=== PATIENT | female | born 1985 | race Caucasian/White ===

== ENCOUNTER 2017-06-23 21:29 | Inpatient (IN) | payer MEDICAID ==
[2017-06-23] MEDS ORDERED: LORazepam 2 MG/ML MDV IVPUSH ONE (22:16)
[2017-06-23] MEDS ORDERED: Ondansetron 4 MG/2 ML SDV IVPUSH ONE (22:34)
[2017-06-23] MEDS: Lactated Ringers 1,000 ML IV SCH (22:35)
[2017-06-24] MEDS ORDERED: Potassium Chloride 20 MEQ Tab.ER PO ONE (02:00)
[2017-06-24] MEDS ORDERED: Acetaminophen 325 MG Tab PO ONE (03:49)
--- NOTE | 2017-06-24 04:23 | EDM.PDOC ---
ED HPI GENERAL MEDICAL PROBLEM - General Chief Complaint: Neuro Symptoms/Deficits Stated Complaint: SEIZURE Time Seen by Provider: 06/23/17 22:40 - History of Present Illness INITIAL COMMENTS - FREE TEXT/NARRATIVE: 31-year-old female presents emergency room after having a seizure at home. Patient apparently had some nausea and vomiting at home this was followed by her having an episode where she hit the floor and had generalized involuntary movement lasting about a minute to minute according to the patient's father. The patient has never had any seizure-like activity in the past however she has a history of severe alcoholism and has had problems with alcohol withdrawal the past. The patient is a habitual drinker and for the last couple months is been drinking the equivalent to 30-35 shots a day. She has not had a drink in 3 days now as she wants to stop drinking. 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) - Infectious Disease History Infectious Disease History: Reports: Chicken Pox - Past Surgical History HEENT Surgical History: Reports: Oral Surgery GI Surgical History: Reports: Colonoscopy Social & Family History - Family History Cardiac: Reports: [place] Psychiatric: Reports: Other (See Below) Other Psychiatric Family History: father is an alchoholic and is controlling Oncologic: Reports: Colon - Tobacco Use Smoking Status *Q: Current Some Day Smoker Years of Tobacco use: 11 Packs/Tins Daily: 0.1 Used Tobacco, but Quit: Yes Month Tobacco Last Used: June Second Hand Smoke Exposure: Yes - Caffeine Use Caffeine Use: Reports: Soda - Alcohol Use Days Per Week of Alcohol Use: 7 Number of Drinks Per Day: 7 Total Drinks Per Week: 49 - Recreational Drug Use Recreational Drug Use: No Drug Use in Last 12 Months: Yes Recreational Drug Type: Reports: Marijuana/Hashish Recreational Drug Use Frequency: Not Used In Over 2 Months ED ROS GENERAL - Review of Systems Review Of Systems: See Below Constitutional: Reports: No Symptoms HEENT: Reports: No Symptoms Respiratory: Reports: No Symptoms Cardiovascular: Reports: No Symptoms GI/Abdominal: Reports: Nausea, Vomiting. Denies: Abdominal Pain : Reports: Dysuria Musculoskeletal: Reports: No Symptoms Skin: Reports: No Symptoms Neurological: Reports: Seizure Psychiatric: Reports: Anxiety, Other. Denies: Hallucinations, Homicidal Ideation, Mood Lability, Suicidal Ideation ED EXAM, GENERAL - Physical Exam Exam: See Below Exam Limited By: Other (Initially the patient was somewhat confused when she arrived here however this did improve fairly quickly) General Appearance: No Apparent Distress, Lethargic, Other (Upon arrival the patient was a little confused she was not sure what time of day it was but over time this did clear up her initial CIWA score was 26) Ears: Normal External Exam, Normal Canal, Hearing Grossly Normal, Normal TMs Nose: Normal Inspection, Normal Mucosa, No Blood Throat/Mouth: Normal Inspection, Normal Lips, Normal Teeth, Normal Gums, Normal Oropharynx, Normal Voice, No Airway Compromise Head: Atraumatic, Normocephalic Neck: Normal Inspection, Supple, Non-Tender, Full Range of Motion. No: Lymphadenopathy (L), Lymphadenopathy (R) Respiratory/Chest: No Respiratory Distress, Lungs Clear, Normal Breath Sounds Cardiovascular: Regular Rate, Rhythm, No Edema, No Murmur GI/Abdominal: Normal Bowel Sounds, Soft, Non-Tender Back Exam: Normal Inspection. No: CVA Tenderness (L), CVA Tenderness (R) Extremities: Normal Inspection, No Pedal Edema Neurological: Other (After the patient received a couple milligrams of Ativan was allowed to rest for several hours she was acting normal no anxiety. Was allowed to rest) Course - Vital Signs Last Recorded V/S: Last Vital Signs Temp 36.4 C 06/23/17 21:36 Pulse 105 H 06/23/17 21:36 Resp 12 06/23/17 21:36 BP 131/95 H 06/23/17 21:36 Pulse Ox 98 06/23/17 21:36 - Orders/Labs/Meds Orders: Active Orders 24 hr Category Date Time Status Head wo Cont [CT] Stat Exams 06/23/17 22:30 Taken CULTURE URINE [RM] Stat Lab 06/24/17 02:15 Received Lactated Ringers [Ringers, Lactated] 1,000 ml Med 06/23/17 22:30 Active IV ASDIRECTED Levofloxacin/Dextrose 5%-Water [Levaquin in D5W 500 MG/ Med 06/24/17 04:27 Active 100 ML] 500 mg Premix Bag 1 bag IV ONETIME Medication Orders Lactated Ringer's (Ringers, Lactated) 1,000 mls @ 150 mls/hr IV ASDIRECTED LUCINA Last Admin: 06/23/17 22:35 Dose: 150 mls/hr Levofloxacin/Dextrose 500 mg/ (Premix) 100 mls @ 100 mls/hr IV ONETIME ONE Stop: 06/24/17 05:26 Labs: Laboratory Tests 06/23/17 06/23/17 06/23/17 Range/Units 21:45 21:45 21:45 WBC 6.81 (3.98-10.04) K/mm3 RBC 3.97 L (3.98-5.22) M/mm3 Hgb 12.2 (11.2-15.7) gm/L Hct 36.1 (34.1-44.9) % MCV 90.9 (79.4-94.8) fl MCH 30.7 (25.6-32.2) pg MCHC 33.8 (32.2-35.5) g/dl RDW Std Deviation 51.4 H (36.4-46.3) fL Plt Count 79 L (182-369) K/mm3 MPV 11.7 (9.4-12.3) fl Neutrophils % (Manual) 78 H (40-60) % Band Neutrophils % 0 (0-10) % Lymphocytes % (Manual) 16 L (20-40) % Atypical Lymphs % 0 % Monocytes % (Manual) 4 (2-10) % Eosinophils % (Manual) 0 L (0.7-5.8) % Basophils % (Manual) 2 H (0.1-1.2) Platelet Estimate Decreased Plt Morphology Comment Normal Polychromasia 1+ slight Anisocytosis 1+ slight RBC Morph Comment Not Reportable PT 10.9 (8.0-13.0) SECONDS INR 1.00 Sodium 132 L (136-145) mEq/L Potassium 2.8 L (3.5-5.1) mEq/L Chloride 92 L (98-107) mEq/L Carbon Dioxide 19 L (21-32) mEq/L Anion Gap 23.8 H (5-15) BUN 6 L (7-18) mg/dL Creatinine 1.2 H (0.55-1.02) mg/dL Est Cr Clr Drug Dosing 67.27 mL/min Estimated GFR (MDRD) 53 (>60) mL/min BUN/Creatinine Ratio 5.0 L (14-18) Glucose 175 H (74-106) mg/dL Calcium 9.0 (8.5-10.1) mg/dL Total Bilirubin 1.0 (0.2-1.0) mg/dL AST 152 H (15-37) U/L ALT 70 H (14-59) U/L Alkaline Phosphatase 57 (46-116) U/L Total Protein 8.8 H (6.4-8.2) g/dl Albumin 4.1 (3.4-5.0) g/dl Globulin 4.7 gm/dL Albumin/Globulin Ratio 0.9 L (1-2) Urine Color (Yellow) Urine Appearance (Clear) Urine pH (5.0-8.0) Ur Specific [place] (1.005-1.030) Urine Protein (Negative) Urine Glucose (UA) (Negative) Urine Ketones (Negative) Urine Occult Blood (Negative) Urine Nitrite (Negative) Urine Bilirubin (Negative) Urine Urobilinogen (0.2-1.0) Ur Leukocyte Esterase (Negative) Urine RBC (0-5) /hpf Urine WBC (0-5) /hpf Ur Epithelial Cells (0-5) /hpf Urine Bacteria (FEW) /hpf Hyaline Casts (0-5) /lpf Urine Mucus (FEW) /hpf Urine HCG, Qual (NEGATIVE) Urine Opiates Screen (NEGATIVE) Ur Buprenorphine Scrn (NEGATIVE) Ur Oxycodone Screen (NEGATIVE) Urine Methadone Screen (NEGATIVE) Ur Propoxyphene Screen (NEGATIVE) Ur Barbiturates Screen (NEGATIVE) Ur Tricyclics Screen (NEGATIVE) Ur Phencyclidine Scrn (NEGATIVE) Ur Amphetamine Screen (NEGATIVE) U Methamphetamines Scrn (NEGATIVE) U Benzodiazepines Scrn (NEGATIVE) U Cocaine Metab Screen (NEGATIVE) U Marijuana (THC) Screen (NEGATIVE) Ethyl Alcohol 0.00 (0.00) gm% 06/23/17 06/23/17 06/23/17 Range/Units 23:30 23:30 23:30 WBC (3.98-10.04) K/mm3 RBC (3.98-5.22) M/mm3 Hgb (11.2-15.7) gm/L Hct (34.1-44.9) % MCV (79.4-94.8) fl MCH (25.6-32.2) pg MCHC (32.2-35.5) g/dl RDW Std Deviation (36.4-46.3) fL Plt Count (182-369) K/mm3 MPV (9.4-12.3) fl Neutrophils % (Manual) (40-60) % Band Neutrophils % (0-10) % Lymphocytes % (Manual) (20-40) % Atypical Lymphs % % Monocytes % (Manual) (2-10) % Eosinophils % (Manual) (0.7-5.8) % Basophils % (Manual) (0.1-1.2) Platelet Estimate Plt Morphology Comment Polychromasia Anisocytosis RBC Morph Comment PT (8.0-13.0) SECONDS INR Sodium (136-145) mEq/L Potassium (3.5-5.1) mEq/L Chloride (98-107) mEq/L Carbon Dioxide (21-32) mEq/L Anion Gap (5-15) BUN (7-18) mg/dL Creatinine (0.55-1.02) mg/dL Est Cr Clr Drug Dosing mL/min Estimated GFR (MDRD) (>60) mL/min BUN/Creatinine Ratio (14-18) Glucose (74-106) mg/dL Calcium (8.5-10.1) mg/dL Total Bilirubin (0.2-1.0) mg/dL AST (15-37) U/L ALT (14-59) U/L Alkaline Phosphatase (46-116) U/L Total Protein (6.4-8.2) g/dl Albumin (3.4-5.0) g/dl Globulin gm/dL Albumin/Globulin Ratio (1-2) Urine Color [place] H (Yellow) Urine Appearance Clear (Clear) Urine pH 6.0 (5.0-8.0) Ur Specific [place] > or = 1.030 (1.005-1.030) Urine Protein 3+ H (Negative) Urine Glucose (UA) Negative (Negative) Urine Ketones 3+ H (Negative) Urine Occult Blood 2+ H (Negative) Urine Nitrite Positive H (Negative) Urine Bilirubin 2+ H (Negative) Urine Urobilinogen 1.0 (0.2-1.0) Ur Leukocyte Esterase Negative (Negative) Urine RBC 5-10 H (0-5) /hpf Urine WBC 5-10 H (0-5) /hpf Ur Epithelial Cells 0-5 (0-5) /hpf Urine Bacteria Many H (FEW) /hpf Hyaline Casts 40-50 H (0-5) /lpf Urine Mucus Many H (FEW) /hpf Urine HCG, Qual Negative (NEGATIVE) Urine Opiates Screen Negative (NEGATIVE) Ur Buprenorphine Scrn Negative (NEGATIVE) Ur Oxycodone Screen Negative (NEGATIVE) Urine Methadone Screen Negative (NEGATIVE) Ur Propoxyphene Screen Negative (NEGATIVE) Ur Barbiturates Screen Negative (NEGATIVE) Ur Tricyclics Screen Negative (NEGATIVE) Ur Phencyclidine Scrn Negative (NEGATIVE) Ur Amphetamine Screen Negative (NEGATIVE) U Methamphetamines Scrn Negative (NEGATIVE) U Benzodiazepines Scrn Presumptive positive H (NEGATIVE) U Cocaine Metab Screen Negative (NEGATIVE) U Marijuana (THC) Screen Negative (NEGATIVE) Ethyl Alcohol (0.00) gm% Meds: Medications Generic Name Dose Route Start Last Admin Trade Name Freq PRN Reason Stop Dose Admin Lactated Ringer's 1,000 mls @ 150 mls/hr 06/23/17 22:30 06/23/17 22:35 Ringers, Lactated IV 150 mls/hr ASDIRECTED LUCINA Administration Levofloxacin/Dextrose 500 mg/ 100 mls @ 100 mls/hr 06/24/17 04:27 Premix IV 06/24/17 05:26 ONETIME ONE Discontinued Medications Generic Name Dose Route Start Last Admin Trade Name Freq PRN Reason Stop Dose Admin Acetaminophen 650 mg 06/24/17 03:49 06/24/17 04:06 Tylenol PO 06/24/17 03:50 650 mg NOW ONE Administration Ceftriaxone Sodium 1 gm/ 100 mls @ 200 mls/hr 06/24/17 04:25 Sodium Chloride IV 06/24/17 04:54 ONETIME ONE Lorazepam 2 mg 06/23/17 22:16 06/23/17 22:35 Ativan IVPUSH 06/23/17 22:17 2 mg ONETIME ONE Administration Ondansetron HCl 4 mg 06/23/17 22:34 06/23/17 22:40 Zofran IVPUSH 06/23/17 22:35 4 mg ONETIME ONE Administration Potassium Chloride 40 meq 06/24/17 02:00 06/24/17 02:22 Klor-Con M20 PO 06/24/17 02:01 40 meq ONETIME ONE Administration - Re-Assessments/Exams Free Text/Narrative Re-Assessment/Exam: 06/24/17 04:43 Patient was admitted to the emergency room in what could be a postictal phase. According to nursing her CIWA score was 26. On my initial evaluation it was down to 16 but she was a little more alert then upon arrival and had received 2 mg of Ativan. Labs head CT were obtained she is somewhat dehydrated and appears to have a urinary tract infection drug screen was unremarkable except for benzodiazepines this could've been the IV Ativan she received here. Blood alcohol was 0.0 consistent with her history of not drinking for several days. She has some hypokalemia and her platelets are unusually low. The patient was allowed to rest here in the emergency department and really did fairly well. However with this history of seizures the history of alcohol withdrawal in the past the patient will be admitted case discussed with Dr. Parker Departure - Departure Time of Disposition: 04:24 Disposition: Admitted As Inpatient 68 Clinical Impression: Alcohol withdrawal syndrome, Seizure, Dehydration, Urinary tract infection - Discharge Information Referrals: Tawny Overton PA-C [Primary Care Provider] - Forms: ED Department Discharge - My Orders Last 24 Hours: My Active Orders 06/23/17 22:30 Head wo Cont [CT] Stat Lactated Ringers [Ringers, Lactated] 1,000 ml IV ASDIRECTED 06/24/17 02:15 CULTURE URINE [RM] Stat 06/24/17 04:27 Levofloxacin/Dextrose 5%-Water [Levaquin in D5W 500 MG/100 ML] 500 mg Premix Bag 1 bag IV ONETIME - Assessment/Plan Last 24 Hours: My Active Orders 06/23/17 22:30 Head wo Cont [CT] Stat Lactated Ringers [Ringers, Lactated] 1,000 ml IV ASDIRECTED 06/24/17 02:15 CULTURE URINE [RM] Stat 06/24/17 04:27 Levofloxacin/Dextrose 5%-Water [Levaquin in D5W 500 MG/100 ML] 500 mg Premix Bag 1 bag IV ONETIME
[2017-06-24] MEDS ORDERED: cefTRIAXone 1 GM in Sodium Chloride 0.9% 100 ML IV ONE (04:25)
[2017-06-24] MEDS ORDERED: Levofloxacin/Dextrose 5%-Water 500 MG in Premix Bag 1 BAG IV ONE (04:27)
[2017-06-24] MEDS: Lactated Ringers 1,000 ML IV SCH ×3 (06:16→19:36)
[2017-06-24] MEDS: LORazepam 2 MG/ML MDV IVPUSH PRN ×6 (06:17→20:48)
--- NOTE | 2017-06-24 07:37 | CT ---
Head CT Technique: Multiple axial sections through the brain were obtained. Intravenous contrast was not utilized. Comparison: No previous intracranial imaging is available. Findings: Ventricles along with basal cisterns and sulci over the convexities are within normal limits. No abnormal parenchymal densities are seen. No evidence of intracranial hemorrhage. No midline shift or mass effect is seen. Bone window settings were reviewed which show no discrete calvarial abnormality. Visualized mastoid sinuses and middle ear cavities are clear. Visualized sinuses are clear. Impression: 1. No acute intracranial abnormality is identified. Diagnostic code #1 I agree with preliminary report issued by [facility] ([facility] preliminary report dictated on 06/24/17, 2:57 AM Central Time)
--- NOTE | 2017-06-24 07:56 | PCM.HP ---
H&P History of Present Illness - General Date of Service: 06/24/17 Admit Problem/Dx: Admission Diagnosis/Problem Admission Diagnosis/Problem Alcohol withdrawal seizure Source of Information: Patient, Old Records, Provider, RN Notes Reviewed History Limitations: Reports: Altered Mental Status - History of Present Illness Initial Comments - Free Text/Narative: This is a 31 yo white female with past medical hx/o Substance Abuse, ETOH Abuse , Anxiety and Hx/o Illness Anxiety Disorder who presents to ED after having seizure like activity at home and was found to have 0 CHRISTY. Patient carries a hx/ o severe alcohol abuse with alcohol withdrawal in the past. She drinks about 30- 35 shots a day and has been to chemical rehab four times now, 2 outpatient and 2 inpatient. Per secondary sources, patient had some nausea and vomiting at home before she had the seizure wherein she hit the floor. According to her dad, she had generalized involuntary movement lasting about a minute. Patient never had any seizures in the past. Her last ETOH intake was 3 days ago. When asked why she drinks too much, she admits to having family and job issues. Her initial work up in ED shows, CBC remarkable for RBC of 3.97, platelet of 79 , neutrophils of 78%, lymphocytes of 16%, and basophils of 2%. Her chemistries remarkable for sodium 132, potassium of 2.8, chloride of 92, bicarbonate of 19, anion gap of 23.8, creatinine of 1.2, BUN of 6, glucose of 175, AST of 152, ALT of 70, and total protein of 8.18. Her urinalysis is suggestive of urinary tract infection with a specific gravity of greater or equal to 1.030. Her UDS is positive for benzodiazepines. Her head CT scan report reads no acute intra- cranial abnormality. Patient is being admitted for ETOH detoxification. Headache Pain Score (Numeric/FACES): 5 Generalized Pain Score (Numeric/FACES): 6 - Related Data Allergies/Adverse Reactions: Allergies Allergy/AdvReac Type Severity Reaction Status Date / Time No Known Allergies Allergy Verified 06/23/17 21:53 Home Medications: Home Meds Ethinyl Estradiol/Drospirenone [Drospirenone-Ee 3-0.03 mg Tab] 1 tab PO DAILY [History] Prazosin HCl [Prazosin] 4 mg PO BEDTIME 06/24/17 [History] busPIRone [Buspar] 15 mg PO BID 06/24/17 [History] Past Medical History Genitourinary History: Reports: Other (See Below) Other Genitourinary History: hx uti's Musculoskeletal History: Reports: Other (See Below) Other Musculoskeletal History: broken nose, tailbone, foot, pinkie finger Psychiatric History: Reports: Addiction, Anxiety, Other (See Below) 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) - Infectious Disease History Infectious Disease History: Reports: Chicken Pox - Past Surgical History HEENT Surgical History: Reports: Oral Surgery GI Surgical History: Reports: Colonoscopy Social & Family History - Family History Family Medical History: Noncontributory Cardiac: Reports: [place] Psychiatric: Reports: Other (See Below) Other Psychiatric Family History: father is an alchoholic and is controlling Oncologic: Reports: Colon - Tobacco Use Smoking Status *Q: Current Every Day Smoker Years of Tobacco use: 5 Packs/Tins Daily: 0.2 Used Tobacco, but Quit: Yes Month Tobacco Last Used: June Second Hand Smoke Exposure: Yes - Caffeine Use Caffeine Use: Reports: None - Alcohol Use Days Per Week of Alcohol Use: 7 Number of Drinks Per Day: 7 Total Drinks Per Week: 49 Date of Last Drink: 06/21/17 - Recreational Drug Use Recreational Drug Use: No Drug Use in Last 12 Months: Yes Recreational Drug Type: Reports: Marijuana/Hashish Recreational Drug Use Frequency: Not Used In Over 2 Months H&P Review of Systems - Review of Systems: Review Of Systems: Unable To Obtain (Patient is lethargic) Exam - Exam Exam: See Below - Vital Signs Vital Signs: Last Vital Signs Temp 37.1 C 06/24/17 04:59 Pulse 105 H 06/23/17 21:36 Resp 17 06/24/17 04:59 BP 136/98 H 06/24/17 04:59 Pulse Ox 100 06/24/17 04:59 Weight: 82.8 kg - Exam General: Lethargic Neck: Trachea Midline. No: JVD Lungs: Clear to Auscultation, Normal Respiratory Effort Cardiovascular: Tachycardia GI/Abdominal Exam: Normal Bowel Sounds, Soft, Non-Tender, No Organomegaly, No Distention, No Abnormal Bruit, No Mass (Female) Exam: Deferred Rectal (Female) Exam: Deferred Back Exam: Other (Deferred) Extremities: Normal Inspection, Normal Range of Motion, Non-Tender, No Pedal Edema, Normal Capillary Refill Peripheral Pulses: 3+: Posterior Tibial (L), Posterior Tibial (R), Dorsalis Pedis (L), Dorsalis Pedis (R) Skin: Warm, Dry, Intact Neuro Extensive - Mental Status: Slow Response to Commands Neuro Extensive - Motor, Sensory, Reflexes: CN II-XII Intact (Limited due to AMS ), Abnormal Gait Psychiatric: Withdrawal Symptoms. No: Normal Affect, Depressed, Agitated, Suicidal Ideation - Patient Data Result Diagrams: 06/24/17 08:54 06/24/17 08:54 *Q Meaningful Use (ADM) - VTE *Q VTE Criteria *Q: - Stroke *Q Stroke Criteria *Q: - AMI *Q AMI Criteria *Q: Problem List Initiated/Reviewed/Updated: Yes Orders Last 24hrs: Active Orders 24 hr Category Date Time Status Patient Status [ADT] Stat ADT 06/24/17 04:47 Active Clear Liquid Diet [DIET] Diet 06/24/17 Breakfast Active Folic Acid Med 06/24/17 08:00 Once 1 mg PO ONETIME ONE LORazepam [Ativan] Med 06/24/17 05:54 Active See Protocol IVPUSH Q2H PRN Magnesium Oxide Med 06/24/17 08:00 Once 800 mg PO ONETIME ONE Code Status [Resuscitation Status] Routine Resus Stat 06/24/17 05:57 Ordered Medication Orders Folic Acid (Folic Acid) 1 mg PO ONETIME ONE Stop: 06/24/17 08:01 Lactated Ringer's (Ringers, Lactated) 1,000 mls @ 150 mls/hr IV ASDIRECTED LUCINA Last Admin: 06/24/17 06:16 Dose: 150 mls/hr Infusion: 06/24/17 05:16 Dose: 150 mls/hr Admin: 06/23/17 22:35 Dose: 150 mls/hr Lorazepam (Ativan) 0 mg IVPUSH Q2H PRN; Protocol PRN Reason: Withdrawal Symptoms Last Admin: 06/24/17 06:17 Dose: 2 mg Magnesium Oxide (Magnesium Oxide) 800 mg PO ONETIME ONE Stop: 06/24/17 08:01 Assessment/Plan Comment:: Assessment: Acute: ETOH Withdrawal Symptoms - CIWA protocol: CIWA score on presentation to ED was 26, her most recent this am is 16 - Ativan/Librium/Clonidine/Topamax - Hydralzine and IVP BB for HR/BP control - Ativan for Abortive Seizure and Withdrawal Symptoms Chronic ETOH Abuse - Drinks 30-35 shots a day - Been to chemical rehab x 4 - Risk factor: Alcoholic father, brother drug addict, low education, unemployed - SA consult Thrombocytopenia - Platelet 79K, likely secondary to Chronic Alcoholism - No anti-coags - Monitor Hypokalemia - 2/2 GI Loss - K 2.8 - Currently receiving K supplement - Repeat level this am Mild UTI/Asymptomatic Bacteriuria - UA suggestive of UTI - Received IV Abx in ED - UA Cx/Sx - Start IV 1 gram Rocephin Daily Dehydration - 2/2 GI Loss and ETOH Use - UA spec gravity > or = 1.030 (very concentrated) - Continue IV hydration Status Post Seizure - Likely related to Severe Alcoholism - She has bruises all over her body, she could not remember how she got them - She has not had any since presentation to ED - Topamax 25 mg po BID for prophylaxis Hx/o Substance Abuse With Marijuana/Hashish - UDS: Pos for Benzo (likely meds she received in ED) - Counseled on Substance Abuse - SA consult Tobacco Dependence - Nicotine patch Daily - Counseled on Smoking Cessation Chronic: Anxiety Illness Anxiety Disorder Plan: Admit to ICU MVI, Folic, Acid and Thiamine CIWA protocol Mg Level this am Vit B12 level (MCV elevated) Ativan for Abortive Seizure and Withdrawal Symptoms PRN meds for Withdrawal Symptoms Aspiration/Seizure Precautions SW/CM d/c planning SA/Psych consult Code Status: 1
[2017-06-24] MEDS ORDERED: Magnesium Oxide 400 MG Tab PO ONE (08:00)
[2017-06-24] MEDS ORDERED: Folic Acid 1 MG Tab PO ONE (08:00)
[2017-06-24] MEDS ORDERED: Albuterol/Ipratropium 3.0-0.5 MG/3 ML Neb Soln NEB PRN (08:31)
[2017-06-24] MEDS ORDERED: Promethazine 12.5 MG in Sodium Chloride 0.9% 50 ML IV PRN (08:31)
[2017-06-24] MEDS ORDERED: Polyethylene Glycol 3350 Powder 17 GM Packet PO PRN (08:31)
[2017-06-24] MEDS ORDERED: HYDROmorphone 0.5 MG/0.5 ML Syringe IVPUSH PRN (08:31)
[2017-06-24] MEDS ORDERED: Docusate Sodium 100 MG Cap PO PRN (08:31)
[2017-06-24] MEDS ORDERED: Ondansetron 4 MG/2 ML SDV IV PRN (08:31)
[2017-06-24] MEDS ORDERED: Bisacodyl 5 MG Tab PO PRN (08:31)
[2017-06-24] MEDS ORDERED: hydrALAZINE 20 MG/ML SDV IVPUSH PRN (08:35)
[2017-06-24] MEDS ORDERED: LORazepam 2 MG/ML MDV IVPUSH PRN (08:35)
[2017-06-24] MEDS ORDERED: Diphtheria,Pertussis(Acell),Tetanus Vaccine 0.5 ML SDV IM ONE (09:00)
[2017-06-24] MEDS: cefTRIAXone 1 GM in Sodium Chloride 0.9% 100 ML IV SCH (09:46)
[2017-06-24] MEDS ORDERED: Magnesium Sulfate/Water 2 GM in Premix Bag 1 BAG IV PRN (10:05)
[2017-06-24] MEDS ORDERED: Nicotine 21 MG/24 Hr Patch TRDERM ONE (10:07)
[2017-06-24] MEDS: Potassium Chloride 10 MEQ in Premix Bag 1 BAG IV SCH ×3 (10:53→12:51)
[2017-06-24] MEDS ORDERED: Magnesium Sulfate/Water 4 GM in Premix Bag 1 BAG IV ONE (11:00)
[2017-06-24] MEDS: oxyCODONE 5 MG Tab PO PRN ×2 (11:44→20:56)
[2017-06-24] MEDS ORDERED: Pneumococcal Polyvalent-23 Vaccine 0.5 ML SDV SUBCUT ONE (13:00)
[2017-06-24] MEDS ORDERED: cloNIDine 0.1 MG Tab PO PRN (13:27)
[2017-06-24] MEDS ORDERED: QUEtiapine 25 MG Tab PO ONE (13:31)
[2017-06-24] MEDS ORDERED: chlordiazePOXIDE 25 MG Cap PO ONE (13:32)
[2017-06-24] MEDS: Metoprolol Tartrate 5 MG/5 ML SDV IVPUSH PRN (13:41)
[2017-06-24] MEDS: busPIRone 5 MG Tab PO SCH (20:49)
[2017-06-24] MEDS: Thiamine 100 MG Tab PO SCH (20:49)
[2017-06-24] MEDS: Prazosin 1 MG Cap PO SCH (20:49)
[2017-06-24] MEDS: Topiramate 25 MG Tab PO SCH (20:49)
[2017-06-24] MEDS: QUEtiapine 25 MG Tab PO SCH (20:50)
[2017-06-24] MEDS ORDERED: busPIRone 5 MG Tab PO SCH (21:00)
[2017-06-25] MEDS: LORazepam 2 MG/ML MDV IVPUSH PRN ×4 (00:23→19:46)
[2017-06-25] MEDS: Lactated Ringers 1,000 ML IV SCH (02:03)
--- NOTE | 2017-06-25 07:59 | PCM.PN ---
- General Info Date of Service: 06/25/17 Admission Dx/Problem (Free Text): Admission Diagnosis/Problem Admission Diagnosis/Problem Alcohol withdrawal seizure Subjective Update: Follow Up Functional Status: Reports: Tolerating Diet, Ambulating, Urinating. Denies: Pain Controlled, New Symptoms Pain Score: 11 - Review of Systems General: Denies: Fever, Weakness, Fatigue, Malaise, Chills HEENT: Reports: No Symptoms Pulmonary: Denies: Shortness of Breath Cardiovascular: Denies: Chest Pain, Palpitations, Dyspnea on Exertion, Lightheadedness Gastrointestinal: Denies: Abdominal Pain, Nausea, Vomiting Genitourinary: Reports: No Symptoms Musculoskeletal: Reports: Back Pain Skin: Reports: Bruising Neurological: Denies: Confusion, Difficulty Walking, Weakness, Gait Disturbance Psychiatric: Reports: Anxiety. Denies: Depression, Agitation, Cravings, Hallucinations Systems Review Comment:: No significant overnight issues. She slept on and off last night. She is not suicidal or depressed. She is a little more anxious. She is happy her fiancee is coming to see her. Her back is bothering her. Her UA is pos for Enterococcus. CIWA score this am is 6. Mg is 1.6 and K is 3.1. She otherwise looks comfortable and in no distress. - Patient Data Vitals - Most Recent: Last Vital Signs Temp 36.3 C 06/25/17 07:47 Pulse 83 06/25/17 04:00 Resp 14 06/25/17 07:47 BP 131/96 H 06/25/17 07:47 Pulse Ox 100 06/25/17 07:47 Weight - Most Recent: 83.915 kg I&O - Last 24 Hours: Intake & Output 06/24/17 06/25/17 06/25/17 22:59 06:59 14:59 Intake Total 2830 2416 Output Total 1 Balance 2829 2416 Lab Results Last 24 Hours: Laboratory Results - last 24 hr 06/24/17 06/24/17 06/25/17 Range/Units 08:54 08:54 05:50 WBC 5.43 4.20 (3.98-10.04) K/mm3 RBC 3.42 L 3.22 L (3.98-5.22) M/mm3 Hgb 10.7 L 10.1 L (11.2-15.7) gm/L Hct 31.5 L 30.7 L (34.1-44.9) % MCV 92.1 95.3 H (79.4-94.8) fl MCH 31.3 31.4 (25.6-32.2) pg MCHC 34.0 32.9 (32.2-35.5) g/dl RDW Std Deviation 51.1 H 53.0 H (36.4-46.3) fL Plt Count 70 L 85 L (182-369) K/mm3 MPV 11.0 11.6 (9.4-12.3) fl Neut % (Auto) 55.9 41.4 (34.0-71.1) % Lymph % (Auto) 27.8 42.4 (19.3-51.7) % [place] % (Auto) 14.4 H 12.9 H (4.7-12.5) % Eos % (Auto) 1.1 1.7 (0.7-5.8) Baso % (Auto) 0.6 1.4 H (0.1-1.2) % Neut # (Auto) 3.04 1.74 (1.56-6.13) K/mm3 Lymph # (Auto) 1.51 1.78 (1.18-3.74) K/mm3 [place] # (Auto) 0.78 H 0.54 H (0.24-0.36) K/mm3 Eos # (Auto) 0.06 0.07 (0.04-0.36) K/mm3 Baso # (Auto) 0.03 0.06 (0.01-0.08) K/mm3 Manual Slide Review Abnormal smear Abnormal smear Sodium 134 L (136-145) mEq/L Potassium 3.2 L (3.5-5.1) mEq/L Chloride 97 L (98-107) mEq/L Carbon Dioxide 26 (21-32) mEq/L Anion Gap 14.2 (5-15) BUN 4 L (7-18) mg/dL Creatinine 0.7 (0.55-1.02) mg/dL Est Cr Clr Drug Dosing 115.32 mL/min Estimated GFR (MDRD) > 60 (>60) mL/min BUN/Creatinine Ratio 5.7 L (14-18) Glucose 76 (74-106) mg/dL Calcium 8.6 (8.5-10.1) mg/dL Magnesium 1.3 L (1.8-2.4) mg/dl C-Reactive Protein < 0.2 (<1.0) mg/dL 06/25/17 Range/Units 05:50 WBC (3.98-10.04) K/mm3 RBC (3.98-5.22) M/mm3 Hgb (11.2-15.7) gm/L Hct (34.1-44.9) % MCV (79.4-94.8) fl MCH (25.6-32.2) pg MCHC (32.2-35.5) g/dl RDW Std Deviation (36.4-46.3) fL Plt Count (182-369) K/mm3 MPV (9.4-12.3) fl Neut % (Auto) (34.0-71.1) % Lymph % (Auto) (19.3-51.7) % [place] % (Auto) (4.7-12.5) % Eos % (Auto) (0.7-5.8) Baso % (Auto) (0.1-1.2) % Neut # (Auto) (1.56-6.13) K/mm3 Lymph # (Auto) (1.18-3.74) K/mm3 [place] # (Auto) (0.24-0.36) K/mm3 Eos # (Auto) (0.04-0.36) K/mm3 Baso # (Auto) (0.01-0.08) K/mm3 Manual Slide Review Sodium 137 (136-145) mEq/L Potassium 3.1 L (3.5-5.1) mEq/L Chloride 102 (98-107) mEq/L Carbon Dioxide 25 (21-32) mEq/L Anion Gap 13.1 (5-15) BUN 3 L (7-18) mg/dL Creatinine 0.7 (0.55-1.02) mg/dL Est Cr Clr Drug Dosing 115.32 mL/min Estimated GFR (MDRD) > 60 (>60) mL/min BUN/Creatinine Ratio 4.3 L (14-18) Glucose 109 H (74-106) mg/dL Calcium 8.8 (8.5-10.1) mg/dL Magnesium 1.6 L (1.8-2.4) mg/dl C-Reactive Protein < 0.2 (<1.0) mg/dL Med Orders - Current: Current Medications Albuterol/Ipratropium (Duoneb 3.0-0.5 Mg/3 Ml) 3 ml NEB Q4H PRN PRN Reason: Shortness Of Breath/wheezing Bisacodyl (Dulcolax) 5 mg PO DAILY PRN PRN Reason: Constipation Buspirone HCl (Buspar) 15 mg PO TID [facility] Last Admin: 06/24/17 20:49 Dose: 15 mg Clonidine HCl (Catapres) 0.1 mg PO Q8H PRN PRN Reason: Withdrawal Symptoms Last Admin: 06/24/17 15:08 Dose: 0.1 mg Docusate Sodium (Colace) 100 mg PO BID PRN PRN Reason: Constipation Folic Acid (Folic Acid) 1 mg PO DAILY [facility] Hydralazine HCl (Apresoline) 20 mg IVPUSH Q4H PRN PRN Reason: Hypertension Hydromorphone HCl (Dilaudid) 0.25 mg IVPUSH Q2H PRN PRN Reason: Pain (severe 7-10) Lactated Ringer's (Ringers, Lactated) 1,000 mls @ 150 mls/hr IV ASDIRECTED [facility] Last Admin: 06/25/17 02:03 Dose: 150 mls/hr Promethazine HCl 12.5 mg/ (Sodium Chloride) 50.5 mls @ 100 mls/hr IV Q6H PRN PRN Reason: Nausea/Vomiting Ceftriaxone Sodium 1 gm/ (Sodium Chloride) 100 mls @ 200 mls/hr IV Q24H [facility] Last Admin: 06/24/17 09:46 Dose: 200 mls/hr Magnesium Sulfate 2 gm/ Premix 50 mls @ 25 mls/hr IV Q2H [facility] Stop: 06/25/17 11:44 Lorazepam (Ativan) 0 mg IVPUSH Q2H PRN; Protocol PRN Reason: Withdrawal Symptoms Last Admin: 06/25/17 00:23 Dose: 1 mg Lorazepam (Ativan) 2 mg IVPUSH Q4H PRN PRN Reason: Seizures Magnesium Sulfate (Pharmacy To Dose - Magnesium Replacement) 0 dose .XX ASDIRECTED PRN PRN Reason: RX TO MONITOR MAG LEVELS Metoprolol Tartrate (Lopressor) 5 mg IVPUSH Q4H PRN PRN Reason: Tachycardia Last Admin: 06/24/17 13:41 Dose: 5 mg Miscellaneous Information (Remove Patch) 0 ea TRDERM DAILY [facility] Nicotine (Habitrol) 21 mg TRDERM DAILY [facility] Ondansetron HCl (Zofran) 4 mg IV Q6H PRN PRN Reason: Nausea/Vomiting Last Admin: 06/24/17 11:46 Dose: 4 mg Oxycodone HCl (Oxycodone) 5 mg PO Q4H PRN PRN Reason: Pain (moderate 4-6) Last Admin: 06/24/17 20:56 Dose: 5 mg Ethinyl Estradiol/Drospirenone [ Drospirenone-Ee 3-0. 03 Mg 0 each PO DAILY [facility] Polyethylene Glycol (Miralax) 17 gm PO DAILY PRN PRN Reason: Constipation Potassium Chloride (Pharmacy To Dose - Potassium Replacement) 0 dose .XX ASDIRECTED PRN PRN Reason: RX TO MONITOR K LEVELS Potassium Chloride (Klor-Con M20) 40 meq PO Q4H [facility] Stop: 06/25/17 15:46 Prazosin HCl (Minpress) 4 mg PO BEDTIME [facility] Last Admin: 06/24/17 20:49 Dose: 4 mg Quetiapine Fumarate (Seroquel) 25 mg PO DAILY [facility] Quetiapine Fumarate (Seroquel) 50 mg PO BEDTIME [facility] Last Admin: 06/24/17 20:50 Dose: 50 mg Senna/Docusate Sodium (Senna Plus) 1 tab PO BID PRN PRN Reason: Constipation Thiamine HCl (Vitamin B-1) 100 mg PO BEDTIME [facility] Last Admin: 06/24/17 20:49 Dose: 100 mg Topiramate (Topamax) 25 mg PO BID [facility] Last Admin: 06/24/17 20:49 Dose: 25 mg Discontinued Medications Acetaminophen (Tylenol) 650 mg PO NOW ONE Stop: 06/24/17 03:50 Last Admin: 06/24/17 04:06 Dose: 650 mg Buspirone HCl (Buspar) 15 mg PO BID [facility] Chlordiazepoxide HCl (Librium) 25 mg PO ONETIME ONE Stop: 06/24/17 13:33 Last Admin: 06/24/17 13:42 Dose: 25 mg Diphtheria/Tetanus/Acell Pertussis (Adacel) 0.5 ml IM .ONCE ONE Stop: 06/24/17 09:01 Folic Acid (Folic Acid) 1 mg PO ONETIME ONE Stop: 06/24/17 08:01 Last Admin: 06/24/17 08:06 Dose: 1 mg Ceftriaxone Sodium 1 gm/ (Sodium Chloride) 100 mls @ 200 mls/hr IV ONETIME ONE Stop: 06/24/17 04:54 Last Admin: 06/24/17 06:31 Dose: Not Given Levofloxacin/Dextrose 500 mg/ (Premix) 100 mls @ 100 mls/hr IV ONETIME ONE Stop: 06/24/17 05:26 Last Admin: 06/24/17 04:41 Dose: 100 mls/hr Magnesium Sulfate 2 gm/ Premix 50 mls @ 25 mls/hr IV ASDIRECTED PRN PRN Reason: Other Potassium Chloride 10 meq/ (Premix) 100 mls @ 100 mls/hr IV Q1H [facility] Stop: 06/24/17 13:29 Last Admin: 06/24/17 12:51 Dose: 100 mls/hr Magnesium Sulfate 4 gm/ Premix 100 mls @ 50 mls/hr IV ONETIME ONE Stop: 06/24/17 12:59 Last Admin: 06/24/17 10:53 Dose: 50 mls/hr Lorazepam (Ativan) 2 mg IVPUSH ONETIME ONE Stop: 06/23/17 22:17 Last Admin: 06/23/17 22:35 Dose: 2 mg Magnesium Oxide (Magnesium Oxide) 800 mg PO ONETIME ONE Stop: 06/24/17 08:01 Last Admin: 06/24/17 08:06 Dose: 800 mg Nicotine (Habitrol) 21 mg TRDERM ONETIME ONE Stop: 06/24/17 10:08 Last Admin: 06/24/17 10:52 Dose: 21 mg Ondansetron HCl (Zofran) 4 mg IVPUSH ONETIME ONE Stop: 06/23/17 22:35 Last Admin: 06/23/17 22:40 Dose: 4 mg Pneumococcal Polyvalent Vaccine (Pneumovax 23) 0.5 ml SUBCUT .ONCE ONE Stop: 06/24/17 13:01 Potassium Chloride (Klor-Con M20) 40 meq PO ONETIME ONE Stop: 06/24/17 02:01 Last Admin: 06/24/17 02:22 Dose: 40 meq Quetiapine Fumarate (Seroquel) 25 mg PO ONETIME ONE Stop: 06/24/17 13:32 Last Admin: 06/24/17 13:42 Dose: 25 mg - Exam General: Alert, Oriented, Cooperative, No Acute Distress HEENT: Pupils Equal, Pupils Reactive, EOMI, Mucous Membr. Moist/[place] Neck: Supple, Trachea Midline, No JVD, No Thyromegaly Lungs: Clear to Auscultation, Normal Respiratory Effort Cardiovascular: Regular Rate, Regular Rhythm GI/Abdominal Exam: Normal Bowel Sounds, Soft, Non-Tender, No Organomegaly, No Distention, No Abnormal Bruit, No Mass (Female) Exam: Deferred Back Exam: Normal Inspection, Decreased Range of Motion, Muscle Spasm, Vertebral Tenderness, Other (bruises) Extremities: Normal Inspection, Normal Range of Motion, Non-Tender, No Pedal Edema, Normal Capillary Refill Peripheral Pulses: 3+: Posterior Tibial (L), Posterior Tibial (R), Dorsalis Pedis (L), Dorsalis Pedis (R) Skin: Warm, Dry, Intact, Ecchymosis Neurological: No New Focal Deficit Psy/Mental Status: Alert, Normal Affect, Normal Mood, Anxious, Other (Mild tremors). No: Suicidal Ideation, Homicidal Ideation, Hallucinations, Withdrawal Symptoms - Problem List Review Problem List Initiated/Reviewed/Updated: Yes - My Orders Last 24 Hours: My Active Orders 06/24/17 08:08 Vaccines to be Administered [RC] PER UNIT ROUTINE 06/24/17 08:31 Height and Weight [RC] 04 Intake and Output [RC] 04,16 Oxygen Therapy [RC] PRN Up With Assistance [RC] ASDIRECTED Up ad Aliza [RC] ASDIRECTED VTE/DVT Education [RC] PER UNIT ROUTINE Vital Signs [RC] Q4HR Consult to Case Management [CONS] Routine Consult to Physician [CONS] Routine Consult to Business Process Representative [CONS] Routine Consult to Spiritual Care [CONS] Routine Albuterol/Ipratropium [DuoNeb 3.0-0.5 MG/3 ML] 3 ml NEB Q4H PRN Bisacodyl [Dulcolax] 5 mg PO DAILY PRN Docusate Sodium [Colace] 100 mg PO BID PRN Docusate Sodium/Sennosides [Senna Plus] 1 tab PO BID PRN HYDROmorphone [Dilaudid] 0.25 mg IVPUSH Q2H PRN Ondansetron [Zofran] 4 mg IV Q6H PRN Polyethylene Glycol 3350 [MiraLAX] 17 gm PO DAILY PRN Promethazine [Phenergan] 12.5 mg Sodium Chloride 0.9% [Normal Saline] 50 ml IV Q6H oxyCODONE 5 mg PO Q4H PRN Sequential Compression Device [OM.PC] Per Unit Routine 06/24/17 08:35 Antiembolic Devices [RC] PER UNIT ROUTINE Notify Provider Consults [RC] ASDIRECTED RT Aerosol Therapy [RC] ASDIRECTED LORazepam [Ativan] 2 mg IVPUSH Q4H PRN Metoprolol Tartrate [Lopressor] 5 mg IVPUSH Q4H PRN hydrALAZINE [Apresoline] 20 mg IVPUSH Q4H PRN 06/24/17 09:00 cefTRIAXone [Rocephin] 1 gm Sodium Chloride 0.9% [Normal Saline] 100 ml IV Q24H 06/24/17 10:15 Magnesium Rep Pharmacy to Dose [Pharmacy to Dose - Magnesium Replacement] 0 dose .XX ASDIRECTED PRN Potassium Rep Pharmacy to Dose [Pharmacy to Dose - Potassium Replacement] 0 dose .XX ASDIRECTED PRN 06/24/17 13:27 cloNIDine [Catapres] 0.1 mg PO Q8H PRN 06/24/17 21:00 Prazosin [Minpress] 4 mg PO BEDTIME [facility]apine [SEROquel] 50 mg PO BEDTIME Thiamine [Vitamin B-1] 100 mg PO BEDTIME Topiramate [Topamax] 25 mg PO BID 06/24/17 Lunch Regular Diet [DIET] 06/25/17 07:45 Magnesium Sulfate/Water [Magnesium Sulfate 2 GM in Water 50 ML] 2 gm Premix Bag 1 bag IV Q2H Potassium Chloride [Klor-Con M20] 40 meq PO Q4H 06/25/17 09:00 Folic Acid 1 mg PO DAILY Nicotine [Habitrol] 21 mg TRDERM DAILY Patient's Own Medication [Ptom] 0 each PO DAILY QUEtiapine [SEROquel] 25 mg PO DAILY Remove Patch 0 ea TRDERM DAILY - Plan Plan:: Assessment: Acute: ETOH Withdrawal Symptoms - CIWA protocol: CIWA score is 6 this am - Ativan/Librium/Clonidine/Topamax - Hydralzine and IVP BB for HR/BP control - Ativan for Abortive Seizure and Withdrawal Symptoms Chronic ETOH Abuse - Drinks 30-35 shots a day - Been to chemical rehab x 4 - Risk factor: Alcoholic father, brother drug addict, low education, unemployed - SA consult cancelled by tele-psych Thrombocytopenia - Platelet is now 85K, likely secondary to Chronic Alcoholism - No anti-coags - Continue to monitor Electrolytes Abnormality Hypokalemia and Hypomagnesemia - 2/2 inadequate intake - K 2.8 --> 3.1; Mg 1.6 - Pharmacy to replete and monitor Asymptomatic Bacteriuria - UA suggestive of UTI - Received IV Abx in ED - UA Cx shows Enterococcus - Continue IV 1 gram Rocephin Daily Back Pain - Status post Fall - Has bruises - PRN pain meds Hx/o Substance Abuse With Marijuana/Hashish - UDS: Pos for Benzo (likely meds she received in ED) - Counseled on Substance Abuse - SA consultation, cancelled by Tele-psych Anxiety With Panic Attack - Buspar increased to 15 mg po TID - PRN Ativan Resolved: S/p Dehydration - 2/2 GI Loss and ETOH Use - UA spec gravity > or = 1.030 (very concentrated) - Continue IV hydration S/p Status Post Seizure - Likely related to Severe Alcoholism - She has bruises all over her body, she could not remember how she got them - She has not had any since presentation to ED - Topamax 25 mg po BID for prophylaxis Chronic: Illness Anxiety Disorder Tobacco Dependence - Nicotine patch Daily - Counseled on Smoking Cessation Plan: She is clinically stable Transfer to Med-Surg with Tele Continue current treatment SW/CM d/c planning Psych consult Code Status: 1 Possible d/c in am Tele-psych recommendations: - Increased Buspar to 15 mg po TID - Seroquel 50 mg po QHS - Cancel SA consult - Outpatient psych follow up after discharge Spoke to Mom and Dad. Updated them about her clinical progress and discharge care plan.
[2017-06-25] MEDS: Magnesium Sulfate/Water 2 GM in Premix Bag 1 BAG IV SCH ×2 (08:55→11:23)
[2017-06-25] MEDS: Nicotine 21 MG/24 Hr Patch TRDERM SCH (08:55)
[2017-06-25] MEDS: busPIRone 5 MG Tab PO SCH ×3 (08:57→20:33)
[2017-06-25] MEDS: Potassium Chloride 20 MEQ Tab.ER PO SCH ×3 (08:57→16:14)
[2017-06-25] MEDS: Topiramate 25 MG Tab PO SCH ×2 (08:58→20:33)
[2017-06-25] MEDS: QUEtiapine 25 MG Tab PO SCH ×2 (08:58→20:36)
[2017-06-25] MEDS: Folic Acid 1 MG Tab PO SCH (08:58)
[2017-06-25] MEDS: DROSPIRENONE PO SCH (09:06)
[2017-06-25] MEDS: ETHINYL ESTRADIOL PO SCH (09:06)
[2017-06-25] MEDS: cefTRIAXone 1 GM in Sodium Chloride 0.9% 100 ML IV SCH (09:59)
[2017-06-25] MEDS: oxyCODONE 5 MG Tab PO PRN ×2 (18:56→23:10)
[2017-06-25] MEDS: Prazosin 1 MG Cap PO SCH (20:33)
[2017-06-25] MEDS: Thiamine 100 MG Tab PO SCH (20:34)
[2017-06-25] MEDS ORDERED: diphenhydrAMINE 50 MG/ML SDV IVPUSH ONE (22:22)
[2017-06-26] MEDS: Metoprolol Tartrate 5 MG/5 ML SDV IVPUSH PRN (06:45)
[2017-06-26] MEDS ORDERED: Acetaminophen/Butalbital/Caffeine 325-50-40 MG Tab PO PRN (06:57)
[2017-06-26] MEDS: Folic Acid 1 MG Tab PO SCH (09:01)
[2017-06-26] MEDS: Topiramate 25 MG Tab PO SCH (09:02)
[2017-06-26] MEDS: busPIRone 5 MG Tab PO SCH (09:02)
[2017-06-26] MEDS: QUEtiapine 25 MG Tab PO SCH (09:03)
[2017-06-26] MEDS: Nicotine 21 MG/24 Hr Patch TRDERM SCH (09:13)
[2017-06-26] MEDS: ETHINYL ESTRADIOL PO SCH (09:15)
[2017-06-26] MEDS: DROSPIRENONE PO SCH (09:15)
[2017-06-26] MEDS: cefTRIAXone 1 GM in Sodium Chloride 0.9% 100 ML IV SCH ×2 (09:16→12:28)
--- NOTE | 2017-06-26 12:20 | PCM.DCSUM1 ---
Discharge Summary - Hospital Course Brief History: This is a 31 yo white female with past medical hx/o Substance Abuse, ETOH Abuse, Anxiety and Hx/o Illness Anxiety Disorder who presents to ED after having seizure like activity at home and admitted for ETOH Withdrawal. - Discharge Data Discharge Date: 06/26/17 Discharge Disposition: Home, Self-Care 01 Condition: Good - Discharge Diagnosis/Problem(s) (1) Thrombocytopenia concurrent with and due to alcoholism SNOMED Code(s): 44758324968178 ICD Code: D69.59 - OTHER SECONDARY THROMBOCYTOPENIA; F10.20 - ALCOHOL DEPENDENCE, UNCOMPLICATED Status: Acute (2) Hypokalemia SNOMED Code(s): 54283226 ICD Code: E87.6 - HYPOKALEMIA Status: Acute (3) Hypomagnesemia SNOMED Code(s): 607704744 ICD Code: E83.42 - HYPOMAGNESEMIA Status: Acute (4) Asymptomatic bacteriuria SNOMED Code(s): 807977017 ICD Code: R82.71 - BACTERIURIA Status: Acute (5) Back pain SNOMED Code(s): 979150017 ICD Code: M54.9 - DORSALGIA, UNSPECIFIED Status: Acute Qualifiers: Qualified Code(s): M54.5 - Low back pain (6) Dehydration SNOMED Code(s): 86059393 ICD Code: E86.0 - DEHYDRATION Status: Resolved (7) Status post seizure SNOMED Code(s): 49436581 ICD Code: Z86.69 - PERSONAL HISTORY OF DIS OF THE NERVOUS SYS AND SENSE ORGANS Status: Resolved (8) Alcohol withdrawal syndrome SNOMED Code(s): 632446511 ICD Code: F10.239 - ALCOHOL DEPENDENCE WITH WITHDRAWAL, UNSPECIFIED Status : Acute Priority: High (9) Alcohol abuse SNOMED Code(s): 81952780 ICD Code: F10.10 - ALCOHOL ABUSE, UNCOMPLICATED Status: Resolved - Patient Summary/Data Operative Procedure(s) Performed: None Complications: None Consults: Consultations 06/24/17 08:31 Consult to Case Management [CONS] Routine Consult to Physician [CONS] Routine Consult to Cabinetmaker Apprentice [CONS] Routine Consult to Spiritual Care [CONS] Routine Recommended Follow-up Testing/Procedures: None Hospital Course: Patient was primarily admitted for alcohol withdrawal symptoms. She came in with a CIWA score of 26 and she was put on supportive care and CIWA protocol. Slowly the patient improved on this regimen. Dr. Lujan was consulted for further evaluation along with substance abuse counselor. Dr. Lujan increased her Buspar frequency from twice to 3 times a day and recommended AA, Pastoral care and outpatient therapy. However SAC was cancelled during this admission. Patient's hospital course was fairly uncomplicated with the exception of electrolytes abnormality due to inadequate intake. However she received oral and intravenous supplementation to improve her levels. Patient is now stable for discharge. She will resume the rest of her home medications. She will have Ativan 1 mg by mouth every 6 hours PRN for panic attack. She will also have a short course of oral supplements (potassium and magnesium) to continue to improve her electrolytes level. Patient was advised to call her primary care doctor or her psychiatrist should she experience mental health crisis. Patient expressed understanding and in agreement with the plans discussed above. All questions were answered. - Patient Instructions Diet: Usual Diet as Tolerated Activity: As Tolerated Driving: May Drive Today Showering/Bathing: May Shower Notify Provider of: Fever, Increased Pain, Swelling and Redness, Nausea and/or Vomiting Other/Special Instructions: - Please take all medications as directed. - Avoid Alcohol while you are taking Seroquel and Ativan. - Caution on operating any motor vehicle or machines, as these medications could impair your level of alertness. - Continue with AA and Pastoral Care. - Follow up with your family doctor right after discharge. - Keep you appointment with Psych as scheduled - Discharge Plan Prescriptions/Med Rec: LORazepam [Ativan] 1 mg PO Q6HR PRN #20 tablet PRN Reason: Other Ciprofloxacin HCl 250 mg PO DAILY #2 tablet Lactobac Cmb #3/Fos/Pantethine [Probiotic & Acidophilus] 1 each PO DAILY #2 capsule Magnesium Oxide 400 mg PO BID #10 tablet Potassium Chloride 20 meq PO DAILY #4 tablet.er Prazosin HCl [Prazosin] 4 mg PO BEDTIME #30 capsule QUEtiapine [SEROquel] 50 mg PO BEDTIME #30 tablet Home Medications: Home Meds Ethinyl Estradiol/Drospirenone [Drospirenone-Ee 3-0.03 mg Tab] 1 tab PO DAILY [History] Ciprofloxacin HCl 250 mg PO DAILY #2 tablet 06/26/17 [Rx] LORazepam [Ativan] 1 mg PO Q6HR PRN #20 tablet 06/26/17 [Rx] Lactobac Cmb #3/Fos/Pantethine [Probiotic & Acidophilus] 1 each PO DAILY #2 capsule 06/26/17 [Rx] Magnesium Oxide 400 mg PO BID #10 tablet 06/26/17 [Rx] Potassium Chloride 20 meq PO DAILY #4 tablet.er 06/26/17 [Rx] Prazosin HCl [Prazosin] 4 mg PO BEDTIME #30 capsule 06/26/17 [Rx] QUEtiapine [SEROquel] 50 mg PO BEDTIME #30 tablet 06/26/17 [Rx] busPIRone [Buspar] 15 mg PO TID #90 06/26/17 [Rx] Patient Handouts: Smoking Cessation, Tips for Success, [id number], Alcohol Use Disorder, Alcohol Intoxication, [id number], Finding Treatment for Addiction, Alcohol Withdrawal, [id number] Referrals: Elsy Yung PA [Physician Options Trader] - 07/01/17 11:45 am Osmani Lujan MD [Physician] - 08/21/17 2:00 pm (Follow-up with outpatient psychiatric services at [facility] 2nd floor. Please arrive at 1330 to complete paper work. ) - Discharge Summary/Plan Comment DC Time >30 min.: Yes (45 mins) Discharge Summary/Plan Comment: Discharge to Home - General Info Date of Service: 06/26/17 Admission Dx/Problem (Free Text: Admission Diagnosis/Problem Admission Diagnosis/Problem Alcohol withdrawal seizure Subjective Update: Follow Up Functional Status: Reports: Pain Controlled, Tolerating Diet, Ambulating, Urinating. Denies: New Symptoms - Review of Systems General: Denies: Fever, Weakness, Fatigue, Malaise HEENT: Reports: No Symptoms Pulmonary: Denies: Shortness of Breath Cardiovascular: Denies: Chest Pain Gastrointestinal: Denies: Abdominal Pain, Nausea, Vomiting Genitourinary: Reports: No Symptoms Musculoskeletal: Reports: No Symptoms Skin: Denies: Cyanosis Neurological: Denies: Confusion, Difficulty Walking, Weakness, Gait Disturbance Psychiatric: Reports: Anxiety. Denies: Confusion, Depression, Agitation, Hallucinations, Suicidal Ideation, Homicidal Ideation Systems Review Comment: No overnight or acute issues. She has no new complaints. She is ready to go home. - Patient Data Vitals - Most Recent: Last Vital Signs Temp 37.2 C 06/26/17 08:01 Pulse 82 06/26/17 08:01 Resp 12 06/26/17 08:01 BP 124/86 06/26/17 08:01 Pulse Ox 100 06/26/17 08:01 Weight - Most Recent: 81.329 kg I&O - Last 24 hours: Intake & Output 06/25/17 06/26/17 06/26/17 22:59 06:59 14:59 Intake Total 1600 700 240 Balance 1600 700 240 Med Orders - Current: Current Medications Acetaminophen/Butalbital/Caffeine (Fioricet 325-50-40 Mg) 2 tab PO Q4H PRN PRN Reason: Headache Last Admin: 06/26/17 09:04 Dose: 2 tab Albuterol/Ipratropium (Duoneb 3.0-0.5 Mg/3 Ml) 3 ml NEB Q4H PRN PRN Reason: Shortness Of Breath/wheezing Bisacodyl (Dulcolax) 5 mg PO DAILY PRN PRN Reason: Constipation Buspirone HCl (Buspar) 15 mg PO TID [facility] Last Admin: 06/26/17 09:02 Dose: 15 mg Clonidine HCl (Catapres) 0.1 mg PO Q8H PRN PRN Reason: Withdrawal Symptoms Last Admin: 06/24/17 15:08 Dose: 0.1 mg Docusate Sodium (Colace) 100 mg PO BID PRN PRN Reason: Constipation Folic Acid (Folic Acid) 1 mg PO DAILY [facility] Last Admin: 06/26/17 09:01 Dose: 1 mg Hydralazine HCl (Apresoline) 20 mg IVPUSH Q4H PRN PRN Reason: Hypertension Hydromorphone HCl (Dilaudid) 0.25 mg IVPUSH Q2H PRN PRN Reason: Pain (severe 7-10) Promethazine HCl 12.5 mg/ (Sodium Chloride) 50.5 mls @ 100 mls/hr IV Q6H PRN PRN Reason: Nausea/Vomiting Ceftriaxone Sodium 1 gm/ (Sodium Chloride) 100 mls @ 200 mls/hr IV Q24H [facility] Last Admin: 06/26/17 09:16 Dose: 200 mls/hr Lorazepam (Ativan) 0 mg IVPUSH Q2H PRN; Protocol PRN Reason: Withdrawal Symptoms Last Admin: 06/25/17 19:46 Dose: 2 mg Lorazepam (Ativan) 2 mg IVPUSH Q4H PRN PRN Reason: Seizures Magnesium Sulfate (Pharmacy To Dose - Magnesium Replacement) 0 dose .XX ASDIRECTED PRN PRN Reason: RX TO MONITOR MAG LEVELS Metoprolol Tartrate (Lopressor) 5 mg IVPUSH Q4H PRN PRN Reason: Tachycardia Last Admin: 06/26/17 06:45 Dose: 5 mg Miscellaneous Information (Remove Patch) 0 ea TRDERM DAILY [facility] Last Admin: 06/26/17 09:36 Dose: 1 ea Nicotine (Habitrol) 21 mg TRDERM DAILY [facility] Last Admin: 06/26/17 09:13 Dose: 21 mg Ondansetron HCl (Zofran) 4 mg IV Q6H PRN PRN Reason: Nausea/Vomiting Last Admin: 06/24/17 11:46 Dose: 4 mg Oxycodone HCl (Oxycodone) 5 mg PO Q4H PRN PRN Reason: Pain (moderate 4-6) Last Admin: 06/25/17 23:10 Dose: 5 mg Ethinyl Estradiol/Drospirenone [ Drospirenone-Ee 3-0. 03 Mg 0 each PO DAILY [facility] Last Admin: 06/26/17 09:15 Dose: 1 each Polyethylene Glycol (Miralax) 17 gm PO DAILY PRN PRN Reason: Constipation Potassium Chloride (Pharmacy To Dose - Potassium Replacement) 0 dose .XX ASDIRECTED PRN PRN Reason: RX TO MONITOR K LEVELS Prazosin HCl (Minpress) 4 mg PO BEDTIME [facility] Last Admin: 06/25/17 20:33 Dose: 4 mg Quetiapine Fumarate (Seroquel) 25 mg PO DAILY [facility] Last Admin: 06/26/17 09:03 Dose: 25 mg Quetiapine Fumarate (Seroquel) 50 mg PO BEDTIME [facility] Last Admin: 06/25/17 20:36 Dose: 50 mg Senna/Docusate Sodium (Senna Plus) 1 tab PO BID PRN PRN Reason: Constipation Thiamine HCl (Vitamin B-1) 100 mg PO BEDTIME [facility] Last Admin: 06/25/17 20:34 Dose: 100 mg Topiramate (Topamax) 25 mg PO BID [facility] Last Admin: 06/26/17 09:02 Dose: 25 mg Discontinued Medications Acetaminophen (Tylenol) 650 mg PO NOW ONE Stop: 06/24/17 03:50 Last Admin: 06/24/17 04:06 Dose: 650 mg Buspirone HCl (Buspar) 15 mg PO BID LUCINA Chlordiazepoxide HCl (Librium) 25 mg PO ONETIME ONE Stop: 06/24/17 13:33 Last Admin: 06/24/17 13:42 Dose: 25 mg Diphenhydramine HCl (Benadryl) 50 mg IVPUSH ONETIME ONE Stop: 06/25/17 22:23 Last Admin: 06/25/17 23:06 Dose: 50 mg Diphtheria/Tetanus/Acell Pertussis (Adacel) 0.5 ml IM .ONCE ONE Stop: 06/24/17 09:01 Folic Acid (Folic Acid) 1 mg PO ONETIME ONE Stop: 06/24/17 08:01 Last Admin: 06/24/17 08:06 Dose: 1 mg Lactated Ringer's (Ringers, Lactated) 1,000 mls @ 150 mls/hr IV ASDIRECTED LUCINA Last Admin: 06/25/17 02:03 Dose: 150 mls/hr Ceftriaxone Sodium 1 gm/ (Sodium Chloride) 100 mls @ 200 mls/hr IV ONETIME ONE Stop: 06/24/17 04:54 Last Admin: 06/24/17 06:31 Dose: Not Given Levofloxacin/Dextrose 500 mg/ (Premix) 100 mls @ 100 mls/hr IV ONETIME ONE Stop: 06/24/17 05:26 Last Admin: 06/24/17 04:41 Dose: 100 mls/hr Magnesium Sulfate 2 gm/ Premix 50 mls @ 25 mls/hr IV ASDIRECTED PRN PRN Reason: Other Potassium Chloride 10 meq/ (Premix) 100 mls @ 100 mls/hr IV Q1H [facility] Stop: 06/24/17 13:29 Last Admin: 06/24/17 12:51 Dose: 100 mls/hr Magnesium Sulfate 4 gm/ Premix 100 mls @ 50 mls/hr IV ONETIME ONE Stop: 06/24/17 12:59 Last Admin: 06/24/17 10:53 Dose: 50 mls/hr Magnesium Sulfate 2 gm/ Premix 50 mls @ 25 mls/hr IV Q2H [facility] Stop: 06/25/17 11:44 Last Admin: 06/25/17 11:23 Dose: 25 mls/hr Lorazepam (Ativan) 2 mg IVPUSH ONETIME ONE Stop: 06/23/17 22:17 Last Admin: 06/23/17 22:35 Dose: 2 mg Magnesium Oxide (Magnesium Oxide) 800 mg PO ONETIME ONE Stop: 06/24/17 08:01 Last Admin: 06/24/17 08:06 Dose: 800 mg Nicotine (Habitrol) 21 mg TRDERM ONETIME ONE Stop: 06/24/17 10:08 Last Admin: 06/24/17 10:52 Dose: 21 mg Ondansetron HCl (Zofran) 4 mg IVPUSH ONETIME ONE Stop: 06/23/17 22:35 Last Admin: 06/23/17 22:40 Dose: 4 mg Pneumococcal Polyvalent Vaccine (Pneumovax 23) 0.5 ml SUBCUT .ONCE ONE Stop: 06/24/17 13:01 Potassium Chloride (Klor-Con M20) 40 meq PO ONETIME ONE Stop: 06/24/17 02:01 Last Admin: 06/24/17 02:22 Dose: 40 meq Potassium Chloride (Klor-Con M20) 40 meq PO Q4H LUC[facility] Stop: 06/25/17 15:46 Last Admin: 06/25/17 16:14 Dose: 40 meq Quetiapine Fumarate (Seroquel) 25 mg PO ONETIME ONE Stop: 06/24/17 13:32 Last Admin: 06/24/17 13:42 Dose: 25 mg - Exam General: Reports: Alert, Oriented, Cooperative, No Acute Distress HEENT: Reports: Pupils Equal, Pupils Reactive, EOMI, Mucous Membr. Moist/[place] Neck: Reports: Supple, Trachea Midline, No JVD, No Thyromegaly Lungs: Reports: Clear to Auscultation, Normal Respiratory Effort Cardiovascular: Reports: Tachycardia GI/Abdominal Exam: Normal Bowel Sounds, Soft, Non-Tender, No Organomegaly, No Distention, No Abnormal Bruit, No Mass (Female) Exam: Deferred Rectal (Female) Exam: Deferred Back Exam: Reports: Normal Inspection, Decreased Range of Motion Extremities: Normal Inspection, Normal Range of Motion, Non-Tender, No Pedal Edema, Normal Capillary Refill Skin: Reports: Warm, Dry, Intact Neurological: Reports: No New Focal Deficit Psy/Mental Status: Reports: Alert, Normal Affect, Normal Mood *Q Meaningful Use (DIS) - VTE *Q VTE Criteria *Q: - Stroke *Q Stroke Criteria *Q: - AMI *Q AMI Criteria *Q:
[2017-06-26 12:52] VITALS: BP 127/89
--- NOTE | 2017-06-26 22:19 | CONS ---
CONSULTING PHYSICIAN: Osmani Lujan MD DATE OF CONSULTATION: 06/24/2017 This is a 60-minute inpatient clinical event. IDENTIFICATION: The patient is a 31-year-old female, who is admitted to the inpatient MICU at [facility] in [place], [place] on 06/24/2017. The patient is seen for psychiatric consultation. CHIEF COMPLAINT: "I was at the hospital." HISTORY OF PRESENT ILLNESS: The patient is a 31-year-old female, who is admitted to the inpatient MICU at [facility] after presenting to the emergency room with symptoms of alcohol withdrawal. The patient states "my parents brought me" to the ER because the patient had been drinking heavily and decided to get sober. After she had a drink about 2 days ago, she was trying to refrain from drinking and had a seizure at her parent's house. She states prior to stopping drinking 2 days ago, she was drinking "20-30 shots of vodka a day." She states that right now that she is "withdrawing from alcohol." She states that she has been drinking heavily for the past 5-7 years and the long sobriety she has had during that time has been 2 months. She states that she does struggle with quite a bit of anxiety and she knows "I worry constantly." She states that she takes BuSpar and prazosin and these medications have helped with her anxiety, which is quite bad at the moment. She denies that she is suicidal or homicidal. She denies any psychotic, delusional, or paranoid symptoms. CIWA score on admission was 10. She wants to get sober at this point in time, but she does not want to go to inpatient chemical dependency treatment because she has had multiple treatments in the past and she felt that the inpatient was not productive for her. MEDICATIONS: At time of presentation: 1. BuSpar 15 mg b.i.d. 2. Prazosin 4 mg at bedtime. ALLERGIES: No known drug allergies. PAST MEDICAL HISTORY: Withdrawal seizure history x1. REVIEW OF SYSTEMS: Aside from neuro, all other major organ systems are negative at this point in time for acute difficulties, complications, family psychiatric and CD history. The patient reports father has a history of alcoholism. PAST PSYCHIATRIC AND CD HISTORY: The patient denies any previous psychiatric hospitalizations. Reports 4 chemical dependency treatments in the past, 2 inpatient and 2 outpatient. She began drinking at 24 years of age, longest sobriety during that time has been 2 months. She had a DWI back in 2010. She has gone to AA in the past and this has helped her. She denies any suicide attempts or self-injurious behaviors. Denies any abuse issues while being raised and denies any eating disorder history. PAST PSYCHIATRIC DIAGNOSIS: Includes anxiety and depression. She has been on antidepressants in the past, but she cannot remember what they are. PRIMARY MD: Dr. Toni hines at [facility]. SOCIAL HISTORY: The patient is born and raised in [place], [place]. She is living with her parents in [place]. She has never been , but she is currently engaged and her fiance is a heating engineer. She has no children. She is raised in [facility]. MENTAL STATUS EXAM: The patient is a 31-year-old white female, in no apparent distress. Speech is of regular rate and rhythm. The patient is cognitively oriented. Psychomotor activity is within normal limits. There is no abnormal motor movements or tics observed. Gait and station are not observed. This patient is bedbound during the course of the interview. Mood is anxious. Affect is cooperative overall for the purposes of the inpatient psychiatric consult. There is no behavioral or stated evidence of acute suicidal or homicidal ideation or acute psychotic, delusional, paranoid symptoms. Thought processes are significant for racing thoughts and ruminations, however, there are no manic symptoms, loose associations evident. Judgment and insight appear unimpaired at the time of interview. Motivation for help appears good. Vitals 126/89, 93, 15, 97.8 degrees. IMPRESSION: Patton I. 1. Alcohol dependence, F10.20. 2. Anxiety disorder, NOS, F41.9. 3. Depression, NOS, F32.9. 4. Rule out major depressive disorder. Patton II: None. Patton III: 1. Symptoms of alcohol withdrawal. 2. Status post withdrawal seizure x1 prior to admission. Patton IV: Severe. Patton V: 50. PLAN: 1. Sobriety. 2. AA. 3. Pastoral guidance. 4. Recommend increasing BuSpar from 15 mg b.i.d. to 15 mg t.i.d. to help with anxiety reduction. 5. Begin Seroquel 50 mg at bedtime. 6. Begin Topamax 25 mg b.i.d. 7. Ativan per [facility] protocol. 8. Librium 25 mg t.i.d. 9. Thiamine supplementation. 10.Folic acid supplementation. 11.Recommend that the patient have outpatient chemical dependency treatment evaluation scheduled at [facility] once she is medically stabilized. 12.Recommend the patient follow up with outpatient psychiatry when she is medically stabilized and transferred back to the community to assess her overall function and efficacy of her newly adjusted continued psychiatric medication regimen. 13.We will continue follow up with the patient on as needed basis while she remains on the MICU. 14.We will follow up with the patient sooner if there are any complications in the interim. 15.Medication compliance. 16.Crisis plan is in place. PHIL /[phone]
== END 2017-06-26 13:28 | disposition home or self-care (01) | DRG 897 ==
LOC: JD.ED 21:29 → JD.ICU 06-24 04:36 → JD.MS 06-25 15:55
PROVIDERS: ADMIT Internal Medicine; ATTEND Internal Medicine
DX: F10.239 Alcohol dependence with withdrawal, unspecified (principal); N39.0 Urinary tract infection, site not specified; F10.288 Alcohol dependence with other alcohol-induced disorder; D69.59 Other secondary thrombocytopenia; E87.6 Hypokalemia; E83.42 Hypomagnesemia; R82.71 Bacteriuria; M54.5 Low back pain; E86.0 Dehydration; F41.9 Anxiety disorder, unspecified; F17.200 Nicotine dependence, unspecified, uncomplicated; Z79.899 Other long term (current) drug therapy; Z86.69 Personal history of other diseases of the nervous system and sense organs
CPT/HCPCS: 36415; 70450; 70450-26; 80048; 80053; 80306; 81001; 81025; 83735; 85025; 85610; 86140; 87086; 87088; 87186; 96361; 96374; 96375; 99285; 99285-25; A9270; A9270-GY; G0480; J0696; J1200; J1956; J2060; J2405; J3475; J3480; J3490; J7030; J7120; P9612

== ENCOUNTER 2017-10-17 14:02 | Emergency (ER) | payer MEDICAID ==
[2017-10-17] MEDS ORDERED: Prochlorperazine 10 MG/2 ML SDV IM ONE (15:09)
[2017-10-17] MEDS ORDERED: Ketorolac 60 MG/2 ML SDV IM ONE (15:09)
[2017-10-17] MEDS ORDERED: diphenhydrAMINE 50 MG/ML SDV IM ONE (15:09)
--- NOTE | 2017-10-17 15:14 | EDM.PDOC ---
ED HPI GENERAL MEDICAL PROBLEM - General Chief Complaint: Headache Stated Complaint: HEAD PAIN Time Seen by Provider: 10/17/17 14:59 Source of Information: Reports: Patient History Limitations: Reports: No Limitations - History of Present Illness INITIAL COMMENTS - FREE TEXT/NARRATIVE: The patient presents with a headache. She has a generalized headache that started this morning. She has no numbness or weakness. She has no nausea or vomiting. She has a history of headaches. She tried to take an imitrex but it did not help. Onset: Gradual Duration: Hour(s): (This morning) Location: Reports: Head Quality: Reports: Ache Severity: Severe Improves with: Reports: None Worsens with: Reports: None Associated Symptoms: Reports: Headaches. Denies: Cough, Fever/Chills, Nausea/ Vomiting, Shortness of Breath generalized headache Pain Score (Numeric/FACES): 5 - Related Data Allergies Allergy/AdvReac Type Severity Reaction Status Date / Time No Known Allergies Allergy Verified 10/17/17 15:01 Home Meds: Home Meds Ethinyl Estradiol/Drospirenone [Drospirenone-Ee 3-0.03 mg Tab] 1 tab PO DAILY [History] LORazepam [Ativan] 1 mg PO Q6HR PRN #20 tablet 06/26/17 [Rx] Prazosin HCl [Prazosin] 4 mg PO BEDTIME #30 capsule 06/26/17 [Rx] QUEtiapine [SEROquel] 50 mg PO BEDTIME #30 tablet 06/26/17 [Rx] busPIRone [Buspar] 15 mg PO TID #90 06/26/17 [Rx] SUMAtriptan [Imitrex] 50 mg PO ONETIME PRN 10/17/17 [History] Past Medical History Genitourinary History: Reports: Other (See Below) Other Genitourinary History: hx uti's Musculoskeletal History: Reports: Other (See Below) Other Musculoskeletal History: broken nose, tailbone, foot, pinkie finger Neurological History: Reports: Headaches, Chronic Psychiatric History: Reports: Addiction, Anxiety, Depression, Other (See Below) 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) - Infectious Disease History Infectious Disease History: Reports: Chicken Pox - Past Surgical History HEENT Surgical History: Reports: Oral Surgery GI Surgical History: Reports: Colonoscopy Social & Family History - Family History Family Medical History: Noncontributory Cardiac: Reports: [place] Psychiatric: Reports: Other (See Below) Other Psychiatric Family History: father is an alchoholic and is controlling Oncologic: Reports: Colon - Tobacco Use Smoking Status *Q: Current Every Day Smoker Years of Tobacco use: 2 Packs/Tins Daily: 0.5 Used Tobacco, but Quit: Yes Month Tobacco Last Used: June Second Hand Smoke Exposure: Yes - Caffeine Use Caffeine Use: Reports: Other Other Caffeine Use: occasional caffeine pills - Alcohol Use Days Per Week of Alcohol Use: 7 Number of Drinks Per Day: 7 Total Drinks Per Week: 49 - Recreational Drug Use Recreational Drug Use: No Drug Use in Last 12 Months: Yes Recreational Drug Type: Reports: Marijuana/Hashish Recreational Drug Use Frequency: Not Used In Over 2 Months ED ROS GENERAL - Review of Systems Review Of Systems: See Below Constitutional: Reports: No Symptoms HEENT: Reports: No Symptoms Respiratory: Reports: No Symptoms Cardiovascular: Reports: No Symptoms Endocrine: Reports: No Symptoms GI/Abdominal: Reports: No Symptoms : Reports: No Symptoms Musculoskeletal: Reports: No Symptoms Skin: Reports: No Symptoms Neurological: Reports: Headache - Physical Exam Exam: See Below Exam Limited By: No Limitations General Appearance: Alert, No Apparent Distress Ears: Normal External Exam Nose: Normal Inspection Head Exam: Atraumatic, Normocephalic Neck: Normal Inspection Respiratory/Chest: No Respiratory Distress, Lungs Clear, Normal Breath Sounds Cardiovascular: Regular Rate, Rhythm, No Edema, No Murmur GI/Abdominal: Soft, Non-Tender, No Organomegaly, No Mass Neuro Exam (Abbreviated): Alert, Oriented, No Motor/Sensory Deficits Course - Vital Signs Last Recorded V/S: Last Vital Signs Temp 97.5 F 10/17/17 14:40 Pulse 79 10/17/17 14:40 Resp 18 10/17/17 14:40 BP 132/74 10/17/17 14:40 Pulse Ox 100 10/17/17 14:40 - Orders/Labs/Meds Orders: Active Orders 24 hr Category Date Time Status Ketorolac [Toradol] Med 10/17/17 15:09 Once 60 mg IM ONETIME ONE Prochlorperazine [Compazine] Med 10/17/17 15:09 Once 10 mg IM ONETIME ONE diphenhydrAMINE [Benadryl] Med 10/17/17 15:09 Once 50 mg IM ONETIME ONE - Re-Assessments/Exams Free Text/Narrative Re-Assessment/Exam: 10/17/17 15:12 I ordered a shot of toradol 60mg IM, benadryl 50mg IM, and compazine 10mg IM. Departure - Departure Time of Disposition: 15:35 Disposition: Home, Self-Care 01 Condition: Good Clinical Impression: Migraine - Discharge Information Referrals: Elsy Yung PA [Primary Care Provider] - Additional Instructions: Go home to a quit dark room and get some rest. Please return if you are worse. - My Orders Last 24 Hours: My Active Orders 10/17/17 15:09 Ketorolac [Toradol] 60 mg IM ONETIME ONE Prochlorperazine [Compazine] 10 mg IM ONETIME ONE diphenhydrAMINE [Benadryl] 50 mg IM ONETIME ONE - Assessment/Plan Last 24 Hours: My Active Orders 10/17/17 15:09 Ketorolac [Toradol] 60 mg IM ONETIME ONE Prochlorperazine [Compazine] 10 mg IM ONETIME ONE diphenhydrAMINE [Benadryl] 50 mg IM ONETIME ONE
[2017-10-17 17:20] VITALS: BP 122/89
== END 2017-10-17 15:35 | disposition home or self-care (01) ==
LOC: JD.ED 14:02
DX: G43.909 Migraine, unspecified, not intractable, without status migrainosus (principal); Z79.899 Other long term (current) drug therapy; F17.210 Nicotine dependence, cigarettes, uncomplicated
CPT/HCPCS: 96372; 99284; J0780; J1200; J1885; 99283

== ENCOUNTER 2018-03-31 09:06 | Emergency (ER) | payer MEDICAID ==
[2018-03-31 09:17] VITALS: BP 143/110
[2018-03-31] MEDS ORDERED: Ketorolac 30 MG/ML SDV IM ONE (10:18)
[2018-03-31] MEDS ORDERED: diphenhydrAMINE 50 MG/ML SDV IM ONE (10:18)
[2018-03-31] MEDS ORDERED: Prochlorperazine 10 MG/2 ML SDV IM ONE (10:18)
--- NOTE | 2018-03-31 10:19 | EDM.PDOC ---
ED HPI GENERAL MEDICAL PROBLEM - General Chief Complaint: Headache Stated Complaint: MIGRAINE Time Seen by Provider: 03/31/18 09:25 Source of Information: Reports: Patient History Limitations: Reports: No Limitations - History of Present Illness INITIAL COMMENTS - FREE TEXT/NARRATIVE: 32 y/o F with "migraine." Feels like her usual migraine headaches. Started this morning when she woke up. No provoking factor. States this feels like her usual headaches. Sharp, throbbing, associated with blurry vision which is typical for her. She feels nauseated but hasn't nauseated. She denies vomiting. No injury. No fever/recent illness. No additional complaints. Headache Pain Score (Numeric/FACES): 7 - Related Data Allergies Allergy/AdvReac Type Severity Reaction Status Date / Time No Known Allergies Allergy Verified 10/17/17 15:01 Home Meds: Home Meds Ethinyl Estradiol/Drospirenone [Drospirenone-Ee 3-0.03 mg Tab] 1 tab PO DAILY [History] LORazepam [Ativan] 1 mg PO Q6HR PRN #20 tablet 06/26/17 [Rx] Prazosin HCl [Prazosin] 4 mg PO BEDTIME #30 capsule 06/26/17 [Rx] busPIRone [Buspar] 15 mg PO TID #90 06/26/17 [Rx] SUMAtriptan [Imitrex] 50 mg PO ONETIME PRN 10/17/17 [History] QUEtiapine [SEROquel] 75 mg PO BEDTIME 03/31/18 [History] Past Medical History Genitourinary History: Reports: Other (See Below) Other Genitourinary History: hx uti's Musculoskeletal History: Reports: Other (See Below) Other Musculoskeletal History: broken nose, tailbone, foot, pinkie finger Neurological History: Reports: Headaches, Chronic, Migraines Psychiatric History: Reports: Addiction, Anxiety, Depression, Other (See Below) 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) - Infectious Disease History Infectious Disease History: Reports: Chicken Pox - Past Surgical History HEENT Surgical History: Reports: Oral Surgery GI Surgical History: Reports: Colonoscopy Social & Family History - Family History Family Medical History: Noncontributory Cardiac: Reports: [place] Psychiatric: Reports: Other (See Below) Other Psychiatric Family History: father is an alchoholic and is controlling Oncologic: Reports: Colon - Tobacco Use Smoking Status *Q: Current Every Day Smoker Years of Tobacco use: 4 Packs/Tins Daily: 0.5 - Caffeine Use Caffeine Use: Reports: None Other Caffeine Use: occasional caffeine pills - Recreational Drug Use Recreational Drug Use: No ED ROS GENERAL - Review of Systems Review Of Systems: See Below Constitutional: Denies: Fever HEENT: Reports: Vision Change. Denies: Throat Pain Respiratory: Denies: Shortness of Breath, Cough Cardiovascular: Denies: Chest Pain Endocrine: Reports: No Symptoms GI/Abdominal: Reports: Nausea. Denies: Abdominal Pain, Vomiting : Reports: No Symptoms Musculoskeletal: Reports: Back Pain. Denies: Neck Pain Skin: Reports: No Symptoms Neurological: Reports: Headache Psychiatric: Reports: No Symptoms Hematologic/Lymphatic: Reports: No Symptoms - Physical Exam Exam: See Below Exam Limited By: No Limitations General Appearance: Alert, WD/WN, No Apparent Distress Eye Exam: Bilateral Eye: EOMI, PERRL Ears: Normal External Exam Nose: Normal Inspection, Normal Mucosa, No Blood Throat/Mouth: Normal Inspection, Normal Oropharynx, Normal Voice, No Airway Compromise Head Exam: Atraumatic Neck: Normal Inspection, Supple, Non-Tender, Full Range of Motion Respiratory/Chest: No Respiratory Distress, Lungs Clear, Normal Breath Sounds, Chest Non-Tender Cardiovascular: Normal Peripheral Pulses, Regular Rate, Rhythm, No Edema, No Murmur GI/Abdominal: Soft, Non-Tender, No Distention Neuro Exam (Abbreviated): Alert, Oriented, CN II-XII Intact, Normal Cognition, No Motor/Sensory Deficits Back Exam: Normal Inspection, Vertebral Tenderness (mid thoracic, no step-offs/ deformities) Psychiatric: Normal Affect, Normal Mood Skin Exam: Warm, Dry, Intact, Normal Color, No Rash Course - Vital Signs Last Recorded V/S: Last Vital Signs Temp 36.5 C 03/31/18 09:12 Pulse 100 03/31/18 09:12 Resp 15 03/31/18 09:12 BP 143/110 H 03/31/18 09:12 Pulse Ox 100 03/31/18 09:12 - Orders/Labs/Meds Meds: Medications Discontinued Medications Generic Name Dose Route Start Last Admin Trade Name Rosa PRN Reason Stop Dose Admin Diphenhydramine HCl 25 mg 03/31/18 10:18 03/31/18 10:48 Benadryl IM 03/31/18 10:19 25 mg ONETIME ONE Administration Ketorolac Tromethamine 30 mg 03/31/18 10:18 03/31/18 10:51 Toradol IM 03/31/18 10:19 30 mg ONETIME ONE Administration Prochlorperazine Edisylate 10 mg 03/31/18 10:18 03/31/18 10:50 Compazine IM 03/31/18 10:19 10 mg ONETIME ONE Administration - Re-Assessments/Exams Free Text/Narrative Re-Assessment/Exam: 03/31/18 13:38 [place] much better after IM toradol, benadryl, and compazine and requested discharge. Discussed need for PCP f/u and ED return precautions. Departure - Departure Time of Disposition: 11:40 Disposition: Home, Self-Care 01 Clinical Impression: Migraine Qualifiers: Migraine type: without aura Status migrainosus presence: without status migrainosus Intractability: not intractable Qualified Code(s): G43.009 - Migraine without aura, not intractable, without status migrainosus - Discharge Information Instructions: Migraine Headache Referrals: Elsy Yung PA [Primary Care Provider] - Forms: ED Department Discharge, ED Return to Work/School Form Additional Instructions: 1. Take your usual medications at home as needed for migraine 2. Follow up with your primary doctor as soon as possible for further care
== END 2018-03-31 11:45 | disposition home or self-care (01) ==
LOC: JD.ED 09:06
DX: G43.009 Migraine without aura, not intractable, without status migrainosus (principal); F17.210 Nicotine dependence, cigarettes, uncomplicated; Z79.899 Other long term (current) drug therapy
CPT/HCPCS: 96372; 99283; J0780; J1200; J1885

== ENCOUNTER 2018-07-06 11:07 | Emergency (ER) | payer SELFPAY ==
[2018-07-06 11:20] VITALS: BP 142/97
[2018-07-06] MEDS ORDERED: Sodium Chloride 0.9% 10 ML Syringe FLUSH PRN (11:40)
[2018-07-06] MEDS ORDERED: Metoclopramide 10 MG/2 ML SDV IVPUSH ONE (11:40)
[2018-07-06] MEDS ORDERED: diphenhydrAMINE 50 MG/ML SDV IVPUSH ONE (11:40)
[2018-07-06] MEDS ORDERED: Sodium Chloride 0.9% 1,000 ML IV SCH (11:45)
[2018-07-06] MEDS ORDERED: Ketorolac 30 MG/ML SDV IVPUSH SCH (11:45)
--- NOTE | 2018-07-06 12:26 | EDM.PDOC ---
ED HPI GENERAL MEDICAL PROBLEM - General Chief Complaint: Headache Stated Complaint: MIGRAINE Time Seen by Provider: 07/06/18 11:19 Source of Information: Reports: Patient, RN Notes Reviewed - History of Present Illness INITIAL COMMENTS - FREE TEXT/NARRATIVE: 32-year-old female with posterior headache for about the past 2 days. There has been a throbbing component with that. She has had some nausea and did vomit about an hour prior to arrival this morning. She does have history of occasional migraines and this headache is quite similar. No recent sinus infection or other recent illness. No recent fever or chills. Treatments PERFORMANCE SPECIALIST: Reports: NSAIDS Headache Pain Score (Numeric/FACES): 10 - Related Data Allergies Allergy/AdvReac Type Severity Reaction Status Date / Time No Known Allergies Allergy Verified 07/06/18 11:20 Home Meds: Home Meds Ethinyl Estradiol/Drospirenone [Drospirenone-Ee 3-0.03 mg Tab] 1 tab PO DAILY [History] LORazepam [Ativan] 1 mg PO Q6HR PRN #20 tablet 06/26/17 [Rx] Prazosin HCl [Prazosin] 4 mg PO BEDTIME #30 capsule 06/26/17 [Rx] busPIRone [Buspar] 15 mg PO TID #90 06/26/17 [Rx] QUEtiapine [SEROquel] 75 mg PO BEDTIME 03/31/18 [History] Topiramate [Topamax] 25 mg PO BEDTIME 07/06/18 [History] Past Medical History Genitourinary History: Reports: UTI, Recurrent Other Genitourinary History: hx uti's Musculoskeletal History: Reports: Other (See Below) Other Musculoskeletal History: broken nose, tailbone, foot, pinkie finger Neurological History: Reports: Headaches, Chronic, Migraines Psychiatric History: Reports: Addiction, Anxiety, Depression, Other (See Below) 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) - Infectious Disease History Infectious Disease History: Reports: Chicken Pox - Past Surgical History HEENT Surgical History: Reports: Oral Surgery GI Surgical History: Reports: Colonoscopy Social & Family History - Family History Family Medical History: Noncontributory Cardiac: Reports: [place] Psychiatric: Reports: Other (See Below) Other Psychiatric Family History: father is an alchoholic and is controlling Oncologic: Reports: Colon - Tobacco Use Smoking Status *Q: Current Every Day Smoker Years of Tobacco use: 5 Packs/Tins Daily: 0.7 - Caffeine Use Caffeine Use: Reports: None Other Caffeine Use: occasional caffeine pills - Recreational Drug Use Recreational Drug Use: No ED ROS GENERAL - Review of Systems Review Of Systems: See Below Constitutional: Denies: Fever, Chills, Diaphoresis HEENT: Denies: Eye Pain, Rhinitis, Sinus Problem, Throat Pain Respiratory: Reports: No Symptoms Cardiovascular: Denies: Chest Pain GI/Abdominal: Reports: Nausea, Vomiting. Denies: Abdominal Pain, Diarrhea Musculoskeletal: Reports: No Symptoms Skin: Reports: No Symptoms Neurological: Reports: Headache. Denies: Numbness, Tingling, Trouble Speaking, Difficulty Walking - Physical Exam Exam: See Below General Appearance: Alert, Moderate Distress Eye Exam: Bilateral Eye: PERRL Throat/Mouth: Normal Inspection, Normal Oropharynx Head Exam: Atraumatic Neck: Supple Respiratory/Chest: No Respiratory Distress, Lungs Clear, Normal Breath Sounds Cardiovascular: Regular Rate, Rhythm Neuro Exam (Abbreviated): Alert, Oriented, No Motor/Sensory Deficits, Other ( Finger to nose testing normal) Extremities: Normal Inspection Skin Exam: Warm, Dry, Normal Color Course - Vital Signs Last Recorded V/S: Last Vital Signs Temp 97.1 F 07/06/18 11:17 Pulse 99 07/06/18 11:17 Resp 16 07/06/18 11:17 BP 142/97 H 07/06/18 11:17 Pulse Ox 99 07/06/18 11:17 - Orders/Labs/Meds Orders: Active Orders 24 hr Category Date Time Status Peripheral IV Care [RC] . DIRECTED Care 07/06/18 11:41 Active Peripheral IV Insertion Adult [OM.PC] Stat Oth 07/06/18 11:40 Ordered Meds: Medications Discontinued Medications Generic Name Dose Route Start Last Admin Trade Name Freq PRN Reason Stop Dose Admin Diphenhydramine HCl 25 mg 07/06/18 11:40 07/06/18 11:53 Benadryl IVPUSH 07/06/18 11:41 25 mg ONETIME ONE Administration Sodium Chloride 1,000 mls @ 999 mls/hr 07/06/18 11:45 07/06/18 11:52 Normal Saline IV 999 mls/hr ONETIME LUCINA Administration Ketorolac Tromethamine 30 mg 07/06/18 11:45 07/06/18 11:53 Toradol IVPUSH 30 mg ONETIME LUCINA Administration Metoclopramide HCl 5 mg 07/06/18 11:40 07/06/18 11:53 Reglan IVPUSH 07/06/18 11:41 5 mg ONETIME ONE Administration Sodium Chloride 10 ml 07/06/18 11:40 07/06/18 11:52 Saline Flush FLUSH 10 ml ASDIRECTED PRN Administration Keep Vein Open - Re-Assessments/Exams Free Text/Narrative Re-Assessment/Exam: 07/06/18 13:00 Feeling better after meds and IV fluid given. Departure - Departure Time of Disposition: 12:24 Disposition: Home, Self-Care 01 Condition: Fair Clinical Impression: Migraine Qualifiers: Migraine type: unspecified Status migrainosus presence: without status migrainosus Intractability: not intractable Qualified Code(s): G43.909 - Migraine, unspecified, not intractable, without status migrainosus - Discharge Information Instructions: Migraine Headache, [id number] Referrals: Elsy Yung PA [Primary Care Provider] - Forms: ED Department Discharge Additional Instructions: Rest, clear liquids and bland diet as tolerated, take Tylenol every 6-8 hours if needed for further headache. Once Your stomach settles down you may take ibuprofen or Aleve if needed for further headache. Follow up with your regular medical provider if not getting back to normal within 12-24 hours as expected. Return to ED as needed. - My Orders Last 24 Hours: My Active Orders 07/06/18 11:40 Peripheral IV Insertion Adult [OM.PC] Stat 07/06/18 11:41 Peripheral IV Care [RC] . DIRECTED - Assessment/Plan Last 24 Hours: My Active Orders 07/06/18 11:40 Peripheral IV Insertion Adult [OM.PC] Stat 07/06/18 11:41 Peripheral IV Care [RC] . DIRECTED
== END 2018-07-06 12:39 | disposition home or self-care (01) ==
LOC: JD.ED 11:07
DX: G43.909 Migraine, unspecified, not intractable, without status migrainosus (principal); F17.210 Nicotine dependence, cigarettes, uncomplicated
CPT/HCPCS: 96361; 96374; 96375; 99284; J1200; J1885; J2765; J7040; J7050